=== PATIENT | male | born 1970 | race Caucasian/White ===

== ENCOUNTER 2022-05-19 10:56 | Outpatient (CLI) | payer OTHER, SELFPAY ==
[2022-05-19 12:40] LABS: Influenza A QL RT-PCR Positive (Negative); Influenza B QL RT-PCR Negative (Negative); SARS-CoV-2 RNA PCR Negative
== END 2022-05-19 10:57 | disposition home or self-care (01) ==
LOC: ANHLAB 10:58
PROVIDERS: PCP Family Medicine; Visit Provider Physician Assistant
DX: R05.9 Cough, unspecified (principal); Z20.822 Contact with and (suspected) exposure to COVID-19
CPT/HCPCS: 87636

== ENCOUNTER 2022-07-23 10:25 | Day surgery (SDC) | payer OTHER, SELFPAY ==
[2022-07-09 09:32] VITALS: BMI 31.4
--- NOTE | 2022-07-22 16:50 | PM.HPGS ---
History of Present Illness History of Present Illness Consent: Risks, benefits, and alternatives have been discussed and questions answered. Patient agrees to proceed with procedure. Chief complaint: Neoplasm Screeing Narrative: Karson Hollingsworth is a 52 year old male referred for colon cancer screening. Review of Systems Review of Systems: All systems reviewed & are unremarkable except as noted in HPI and below PMFSH Surgical History Surgical History History of nasal surgery Social History Social History Smoking status: Never smoker Second hand tobacco smoke exposure: No Alcohol intake: current Substance use: never Substance use type: does not use Living arrangements: with family Occupation/Education: occupation Gender identity (if verbalized by the patient): Male Spiritual care concerns: No Meds Home Medications and Allergies Home Medications Medication Instructions Recorded Confirmed Type fexofenadine 180 mg tablet 180 mg PO DAILY 07/09/22 07/23/22 History multivit with minerals-iron 18 1 tablet PO DAILY 07/09/22 07/23/22 History mg-folic ac 400 mcg-vit K 25 mcg tablet (Adults Multivitamin) Allergies Allergy/AdvReac Type Severity Reaction Status Date / Time No Known Allergies Allergy Verified 07/23/22 10:44 Exam Resp: Auscultation: clear to auscultation bilaterally Cardio: Rate: regular rate Rhythm: regular rhythm GI: GI Palp: Yes Soft to palpation and No Tenderness to palpation present (GI) Assessment and Plan Assessment and plan (1) Colon cancer screening: Code(s): Z12.11 - Encounter for screening for malignant neoplasm of colon Status: Acute Assessment and Plan: Colonoscopy with possible biopsy or polypectomy or cautery or injection of substances.
[2022-07-23 10:40] VITALS: BP 140/87; PULSE 82; RESP 14; TEMP 36.3; O2SAT 98
--- NOTE | 2022-07-23 12:00 | P.PNAN_ITS ---
Anes - Initial Pre Proc Eval Procedure: Operation Date: 07/23/22 12:00 Proposed Procedures p Screening Colonoscopy - Ken Ewing MD Date/Time: 07/23/22 12:00 Surgeon: Ken Ewing MD Pre Op Diagnosis: Neoplasm Screeing Patient Data Age: 52 Gender: M Height: 1.83 m Weight: 103.4 kg Allergies Allergy/AdvReac Type Severity Reaction Status Date / Time No Known Allergies Allergy Verified 07/23/22 10:44 Home Medications Medication Instructions Recorded Confirmed Type fexofenadine 180 mg tablet 180 mg PO DAILY 07/09/22 07/23/22 History multivit with minerals-iron 18 1 tablet PO DAILY 07/09/22 07/23/22 History mg-folic ac 400 mcg-vit K 25 mcg tablet (Adults Multivitamin) Patient hx anesthesia problems: none Family hx anesthesia problems: none Results Review: All pre-operative results and documents have been reviewed as part of the pre- operative evaluation. [facility] Past Medical History Medical History ALEJANDRA (obstructive sleep apnea) Surgical History Surgical History History of nasal surgery Social History Social History Smoking status: Never smoker Second hand tobacco smoke exposure: No Alcohol intake: current Substance use: never Substance use type: does not use Living arrangements: with family Occupation/Education: occupation Gender identity (if verbalized by the patient): Male Spiritual care concerns: No Anes - Eval Final PreProcedure Day of Procedure 07/23/22 12:00 Patient weight: obese Heart: regular rate and rhythm Lungs: clear to auscultation Airway: Mallampati scale class II Neurological: alert and oriented Last oral intake: >/= 8 hours ASA classification: III Emergent: no Anesthetic plan: proceed Anesthesia type and monitoring: general GIVS and standard monitoring Results Review: All pre-operative results and documents have been reviewed as part of the pre- operative evaluation. Informed Consent: The patient's anesthetic plan and its attendant risks and benefits were discussed with the patient/family/POA. Questions were solicited and answers provided to the satisfaction of the patient/family/POA.
[2022-07-23] MEDS: LACTATED RINGERS 1,000 ML 150 ML IV CONT (12:04)
[2022-07-23] MEDS: SIMETHICONE ORAL SUSPENSION 20 MG/0.3 ML 30 ML BOTTLE 0.6 ML IRRIGATION (12:16)
[2022-07-23 12:27] VITALS: BP 109/79; PULSE 63; RESP 16; O2SAT 99
[2022-07-23 12:37] VITALS: BP 124/83; PULSE 61; RESP 15; O2SAT 100
[2022-07-23 12:47] VITALS: BP 122/82; PULSE 58; RESP 15; O2SAT 100
--- NOTE | 2022-07-23 13:01 | WPDANESPN ---
Anes - Prog Note Post-Op Date/Time: 07/23/22 13:01 Cardiovascular status: normal Respiratory status: normal Airway patency: baseline Mental status: baseline Post-Op hydration status: normal Vital Signs: Last Vital Signs Temp 36.3 C L 07/23/22 10:40 Pulse 58 L 07/23/22 12:47 Resp 15 07/23/22 12:47 BP 122/82 07/23/22 12:47 Pulse Ox 100 07/23/22 12:47 O2 Del Method Room Air 07/23/22 12:47 Pain Score (VAS): 0 I/O: Intake & Output 07/22/22 07/23/22 07/23/22 23:59 07:59 15:59 Intake Total 300 Balance 300 Patient Feedback: Patient satisfied with anesthetic care.
== END 2022-07-23 13:00 | disposition home or self-care (01) ==
PROVIDERS: PCP Family Medicine; Visit Provider Internal Medicine Gastroenterology
PROC: 0DJD8ZZ Inspection of Lower Intestinal Tract, Via Natural or Artificial Opening Endoscopic (ICD-10-PCS; CPT 45378; principal; 2022-07-23 12:00)
DX: Z12.11 Encounter for screening for malignant neoplasm of colon (principal)
CPT/HCPCS: 45378